=== PATIENT | female | born 1940 | race African-American/Black ===

== ENCOUNTER 2016-10-16 14:26 | Emergency (ER) | payer MEDICARE ==
[~2016-10-16] VITALS: Ht 167.6 cm; Wt 75.0 kg
[~2016-10-16 14:26] MED LIST: ALLO100T; HYDR-519; LIDO700A; LOSA100T14
[2016-10-16] MEDS ORDERED: HYDROCODONE/APAP 7.5/325MG 1 TAB TABLET PO ONE (18:30)
[2016-10-16 20:10] VITALS: BP 129/62
== END 2016-10-16 21:12 | disposition home or self-care (01) ==
LOC: ER 14:26
DX: S13.4XXA Sprain of ligaments of cervical spine, initial encounter (principal); S40.011A Contusion of right shoulder, initial encounter; I10 Essential (primary) hypertension; Z98.51 Tubal ligation status; Z98.890 Other specified postprocedural states; W07.XXXA Fall from chair, initial encounter; Y93.89 Activity, other specified; Y99.8 Other external cause status; Y92.000 Kitchen of unspecified non-institutional (private) residence as the place of occurrence of the external cause
CPT/HCPCS: 72125; 73030; 73090; 73110; 99284; A4565